=== PATIENT | female | born 1970 | race Caucasian/White ===

== ENCOUNTER → 2023-12-03 06:30 | Day surgery (SDC) | payer OTHER, SELFPAY | LOC: GI 06:30 | PROVIDERS: ATTENDING PHYSICIAN Internal Medicine Gastroenterology | DX: Z12.11 Encounter for screening for malignant neoplasm of colon (principal); D12.2 Benign neoplasm of ascending colon | CPT/HCPCS: 45385; 88305 ==

== ENCOUNTER → 2024-05-05 15:43 | Outpatient (REF) | payer OTHER, SELFPAY | LOC: HWRAD 15:43 | PROVIDERS: ATTENDING PHYSICIAN Podiatrist Foot & Ankle Surgery; FAMILY PHYSICIAN Physician Assistant | DX: M76.61 Achilles tendinitis, right leg (principal) | CPT/HCPCS: 73610 ==

== ENCOUNTER 2025-02-01 11:50 | Emergency (ER) | payer OTHER, SELFPAY ==
[2025-02-01 11:53] VITALS: BP 121/75
--- NOTE | 2025-02-01 12:45 | ED.GENMED ---
History of Present Illness
General
Chief Complaint: Musculo-Skeletal Complaint
Source: patient
Exam Limitations: none
Time Seen by Provider: 02/01/25 12:18
Nursing documentation reviewed up to this point in time: agreed with
History of Present Illness
History of Present Illness:
54 yr old female presents to the ER for evaluation of sudden pain to the right Achilles tendon region. She has been treated for Achilles tendinitis recently by podiatry and was doing hot outside and when she landed she felt heard a pop. She is
unable to bear weight.
Incidentally she had an MRI at this hospital to further evaluate Achilles tendinitis prior to the injury.
Past History
Past History
ED Past Medical History: Asthma
Social History
Tobacco: Non-smoker
Personal:
Living: with family
Employment: Employed
Review of Systems
Review of Systems
Allergies reviewed?: Yes
All Other Systems: ROS reviewed and negative except as documented in HPI and ROS
Constitutional: Reports no symptoms
Musculoskeletal: Reports other (sudden pain/pop to right posterior ankle region )
Skin: Reports no symptoms
Neurological: Reports no symptoms
Psychiatric: Reports no symptoms
Phy Exam
General Physical Exam
General Presentation: no apparent distress
General age: appears stated age
General Skin: warm and dry
General Habitus: normal
General Mental: alert
Neurological Exam
Neurological Exam: alert and oriented x3
Musculoskeletal Exam
Musculoskeletal Exam: other (Right lower extremity strong pulses patient with tenderness and obvious palpable deformity over the Achilles tendon region. Normal distal sensation)
Skin Exam
Skin Exam: normal color and warm/dry
Psychiatric Exam
Psychiatric Exam: normal mood/affect
Course
Orders/Labs/Results
Orders:
Orders
02/01/25 11:57
CR Ankle - Right Min 3 Views * Urgent
Reason For Exam: pain injury
Vital Signs
Initial and Last Documented VS:
Initial Vital Signs
Temp Pulse Resp BP Pulse Ox
99.0 F 82 16 121/75 100
02/01/25 11:53 02/01/25 11:53 02/01/25 11:53 02/01/25 11:53 02/01/25 11:53
Last Documented Vital Signs
Temp Pulse Resp BP Pulse Ox
99.0 F 82 16 121/75 100
02/01/25 11:53 02/01/25 11:53 02/01/25 11:53 02/01/25 11:53 02/01/25 11:53
Procedures
Splint Check
Splint checked by provider?: Yes
Circulation/Movement/Sensation post splint application: brisk cap refill and full sensation
MDM/Problems Addressed
Differential Diagnosis Includes:
Not limited to ankle sprain strain fracture versus Achilles tendon injury.
MDM/Problems Addressed:
Patient with symptoms consistent with ruptured Achilles tendon. Normal distal pulses normal distal sensation will place in a posterior long-leg splint mild plantarflexion with close outpatient with orthopedics. Patient does have crutches at home.
Discussed splint care. Patient took ibuprofen prior to arrival offered additional medication for pain however patient declines will take ibuprofen and Tylenol with close outpatient follow with orthopedics
*Radiology
Radiology exam reviewed: radiology read reviewed
*Critical Care Note
Total Time (30-74mins, 75-104mins- exclusive of procedures): Not Applicable
ED Attending Note
-
Portions of this chart may have been created with voice recognition software.� Occasional wrong word or��sound alike� substitutions may have occurred due to the inherent limitations of voice recognition software.
Discharge Plan
Departure
Patient Disposition: Home (Routine Discharge)
Date of Disposition: 02/01/25
Time of Disposition: 13:12
Patient with high blood pressure during this ER visit?: No
Condition: Fair
Covid-19: Not Applicable
Discharge Problem:
Achilles tendon injury
Instructions: Achilles tendon injury, Splint Care
Prescriptions:
No Action
amoxicillin-pot clavulanate [Augmentin] 1 EACH tablet
1 ea PO BID Qty: 20 0RF
fluconazole 150 MG tablet
150 mg PO DAILY Qty: 2 0RF
Referrals:
Paulette Ulloa PA [Family Provider, Family Practice]
Owen Amos MD [Active, Orthopedics]
Activity Restrictions/Additional Instructions:
As discussed wear splint until seen and evaluated by orthopedics. Do not wet splint. Do not bear weight on splint. Use crutches for ambulation. Keep elevated as much as possible.
Ibuprofen every 8 hours with food. You also may take with Tylenol. Please follow-up with orthopedics in the next several days .
call today to make an appointment soon as possible .
return if any worsening of symptoms
Interventions
Interventions:
*Risk Screen - Suicide Last Done: 02/01/25 11:53
*Neglect/Abuse Screening Last Done: 02/01/25 11:53
*Nursing Disposition Last Done: 02/01/25 13:20
ED-Musculoskeletal Assessment Last Done: 02/01/25 12:46
Discharge Date and Time
Discharge Date/Time: 02/01/25 13:21
Print Language: SAMI
== END 2025-02-01 13:21 | disposition home or self-care (01) ==
LOC: EMR 11:50
PROVIDERS: EMERGENCY PHYSICIAN Emergency Medicine; FAMILY PHYSICIAN Physician Assistant
DX: S86.001A Unspecified injury of right Achilles tendon, initial encounter (principal); X58.XXXA Exposure to other specified factors, initial encounter; J45.909 Unspecified asthma, uncomplicated
CPT/HCPCS: 29515; 99284; 73610; 73721

== ENCOUNTER → 2025-02-02 11:12 | Outpatient (REF) | payer OTHER, SELFPAY ==
[2025-02-02 12:32] LABS: % Basophils 0.4 % (0-2); % Eosinophils 0.8 % (0-6); % Immature Granulocytes 0.3 % (0-0.5); % Lymphocytes 30.6 % (20.5-51.1); % Monocytes 6.2 % (1.7-9.3); % Neutrophils 61.7 % (42.2-75.2); Absolute Eosinophils 0.1 10^3/uL (0-0.7); Absolute Lymphocytes 3.2 10^3/uL (1.2-3.4); Absolute Monocytes 0.7 10^3/uL (0.1-0.6); Absolute Neutrophils 6.5 10^3/uL (1.4-6.5); Hematocrit 39.4 % (37.0-47.0); Hemoglobin 13.2 g/dL (12.0-16.0); Mean Corp Hgb Conc. 33.5 g/dL (33.0-37.0); Mean Corpuscular Hgb 29.1 pg (27.0-31.0); Mean Platelet Volume 10.9 fL (7.4-10.4); Nucleated Red Blood Cells % 0 %; Platelet Count 353 10^3/uL (130-400); Red Blood Cell Count 4.53 10^6/uL (4.20-5.40); White Blood Cell Count 10.5 10^3/uL (4.8-10.8)
[2025-02-02 13:25] LABS: Blood Urea Nitrogen 10 mg/dl (7-17); Calcium 9.3 mg/dl (8.4-10.2); Carbon Dioxide 24 mmol/L (22-30); Chloride 107 mmol/L (98-107); Glucose 96 mg/dl (70-99); Potassium 4.2 mmol/L (3.5-5.1); Sodium 136 mmol/L (135-145); eGFR > 60.00
== END ==
LOC: HWCARD 11:12
PROVIDERS: ATTENDING PHYSICIAN Student in an Organized Health Care Education/Training Program; FAMILY PHYSICIAN Physician Assistant
DX: Z01.818 Encounter for other preprocedural examination (principal)
CPT/HCPCS: 36415; 80048; 85025; 93005

== ENCOUNTER → 2025-02-04 08:15 | Outpatient (REF) | payer OTHER, SELFPAY | LOC: MRI 3T 08:15 | PROVIDERS: ATTENDING PHYSICIAN Physician Assistant; FAMILY PHYSICIAN Physician Assistant | DX: M25.571 Pain in right ankle and joints of right foot (principal) | CPT/HCPCS: 73721 ==

== ENCOUNTER → 2025-02-22 14:10 | Outpatient (REF) | payer OTHER, SELFPAY | LOC: WDC 14:10 | PROVIDERS: ATTENDING PHYSICIAN Physician Assistant | DX: Z12.31 Encounter for screening mammogram for malignant neoplasm of breast (principal) | CPT/HCPCS: 77063; 77067 ==

== ENCOUNTER 2025-03-29 07:03 | Outpatient (RCR) | payer OTHER, SELFPAY | END 2025-03-29 23:59 | disposition home or self-care (01) | LOC: RPT 07:03 | PROVIDERS: ATTENDING PHYSICIAN Physician Assistant; FAMILY PHYSICIAN Family Medicine | DX: Z47.89 Encounter for other orthopedic aftercare (principal); R26.89 Other abnormalities of gait and mobility; Z73.6 Limitation of activities due to disability; M25.571 Pain in right ankle and joints of right foot | CPT/HCPCS: 97110; 97162 ==

== ENCOUNTER 2025-04-28 09:08 | Outpatient (RCR) | payer OTHER, SELFPAY | END 2025-04-28 23:59 | disposition home or self-care (01) | LOC: RPT 09:08 | PROVIDERS: ATTENDING PHYSICIAN Physician Assistant; FAMILY PHYSICIAN Family Medicine | DX: Z47.89 Encounter for other orthopedic aftercare (principal); R26.89 Other abnormalities of gait and mobility; Z73.6 Limitation of activities due to disability; M25.571 Pain in right ankle and joints of right foot | CPT/HCPCS: 97010; 97110; 97140 ==

== ENCOUNTER 2025-05-30 16:07 | Outpatient (RCR) | payer BC, SELFPAY | END 2025-05-30 23:59 | disposition home or self-care (01) | LOC: RPT 16:07 | PROVIDERS: ATTENDING PHYSICIAN Physician Assistant; FAMILY PHYSICIAN Family Medicine | DX: Z47.89 Encounter for other orthopedic aftercare (principal); R26.89 Other abnormalities of gait and mobility; Z73.6 Limitation of activities due to disability; M25.571 Pain in right ankle and joints of right foot | CPT/HCPCS: 97010; 97110; 97162 ==